=== PATIENT | male | born 2000 | race Caucasian/White ===

== ENCOUNTER 2020-08-06 13:46 | Emergency (ER) | payer OTHER ==
--- NOTE | 2020-08-06 14:17 | XRAY Report ---
PROCEDURE: Wrist 3 View LT INDICATIONS: injury TECHNIQUE: 3 views of the wrist were acquired. COMPARISON: None. FINDINGS: Bones: No displaced fractures or dislocations. No suspicious bony lesions. Soft tissues: No suspicious soft tissue calcifications. IMPRESSION: 1. No displaced fracture or dislocation. If clinical concern persists, a repeat study may be performed in 7-10 days for further evaluation. Reviewed by: Kevin Will MD on 08/06/2020 2:16 PM PDT Approved by: Kevin Will MD on 08/06/2020 2:16 PM PDT Station ID: [id number]
--- NOTE | 2020-08-06 15:29 | ED Physician Documentation ---
PD HPI UPPER EXT INJURY - Stated complaint Stated Complaint: L ARM PX - Chief complaint Chief Complaint: Trauma Ext - History obtained from History obtained from: Patient - Additonal information Additional information: Patient comes emergency department complaining of left wrist pain after falling while skateboarding 4 days ago and injuring his wrist somehow. 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 He states he tried to work yesterday but could not use his wrist at all. He has been wearing a Velcro brace. No prior history of injury to this wrist. Patient states he was not injured in any other way, other than abrasions. Review of Systems Ten Systems: 10 systems reviewed and negative Constitutional: reports: Reviewed and negative Eyes: reports: Reviewed and negative Ears: reports: Reviewed and negative Nose: reports: Reviewed and negative Throat: reports: Reviewed and negative Cardiac: reports: Reviewed and negative Respiratory: reports: Reviewed and negative GI: reports: Reviewed and negative : reports: Reviewed and negative Skin: reports: Reviewed and negative Musculoskeletal: reports: Joint pain Neurologic: reports: Reviewed and negative Psychiatric: reports: Reviewed and negative Endocrine: reports: Reviewed and negative Immunocompromised: reports: Reviewed and negative PD PAST MEDICAL HISTORY - Past Medical History Past Medical History: No - Past Surgical History Past Surgical History: No - Present Medications Home Medications: Ambulatory Orders Medication Instructions Recorded Confirmed HYDROcod/ACETAM 5/325 [[place] 5/325] 1 ea PO Q6H PRN #5 tablet 08/06/20 - Allergies Allergies/Adverse Reactions: Allergies Allergy/AdvReac Type Severity Reaction Status Date / Time No Known Drug Allergies Allergy Verified 08/06/20 13:50 - Social History Does the pt smoke?: No Smoking Status: Never smoker Does the pt drink ETOH?: No Does the pt have substance abuse?: No - Immunizations Immunizations are current?: Yes PD ED PE NORMAL - Vitals Vital signs reviewed: Yes - General General: Alert and oriented X 3, No acute distress - HEENT HEENT: Atraumatic, PERRL, EOMI, Moist mucous membranes - Neck Neck: Supple, no meningeal sign - Cardiac Cardiac: Strong equal pulses - Respiratory Respiratory: No respiratory distress - Abdomen Abdomen: Normal bowel sounds, Soft, Non tender, Non distended - Derm Derm: Warm and dry - Extremities Extremities: No deformity, Other (minimal edema L wrist. Minimally limited ROM, secondary to pain, though ROM is slow. Tenderness over bilateral lateral aspect of wrist.) - Neuro Neuro: Alert and oriented X 3, No motor deficit, No sensory deficit - Psych Psych: Normal mood, Normal affect Results - Vitals Vitals: Vital Signs - 24 hr 08/06/20 08/06/20 13:50 15:55 Temperature 36.9 C 36.9 C Heart Rate 84 85 Respiratory 16 16 Rate Blood Pressure 162/101 H 132/68 H O2 Saturation 100 100 Oxygen O2 Source Room air - Rads (name of study) L wrist XR Radiology: Final report received, EMP read indepedently, See rad report (neg) PD MEDICAL DECISION MAKING - ED course Complexity details: reviewed old records, reviewed results, re-evaluated patient, considered differential, d/w patient ED course: D/w pt that XR is negative. PT has a velcro splint, which he can wear. We have discussed home management of the sx, as well as the usual indications for return. Departure - Departure Disposition: 01 Home, Self Care Clinical Impression: Contusion of wrist, left Qualifiers: Encounter type: initial encounter Qualified Code(s): S60.212A - Contusion of left wrist, initial encounter Left wrist sprain Qualifiers: Encounter type: initial encounter Qualified Code(s): S63.502A - Unspecified sprain of left wrist, initial encounter Condition: Stable Instructions: ED Sprain Wrist Prescriptions: HYDROcod/ACETAM 5/325 [[place] 5/325] 1 ea PO Q6H PRN #5 tablet PRN Reason: Pain Forms: Activity restrictions Discharge Date/Time: 08/06/20 15:56
[2020-08-06 15:56] VITALS: BP 132/68
== END 2020-08-06 15:56 | disposition home or self-care (01) ==
LOC: ED 13:46
DX: S63.502A Unspecified sprain of left wrist, initial encounter (principal); S60.212A Contusion of left wrist, initial encounter; W19.XXXA Unspecified fall, initial encounter; Y93.51 Activity, roller skating (inline) and skateboarding
CPT/HCPCS: 99283; 99284

== ENCOUNTER 2024-07-12 08:00 | Outpatient (CLI) | payer OTHER ==
[2024-07-12 18:03] LABS: BASOPHILS # (AUTO) 0.1 10^3/uL (0.0-0.1); BASOPHILS % (AUTO) 0.9 %; EOSINOPHILS # (AUTO) 0.5 10^3/uL (0.0-0.7); EOSINOPHILS % (AUTO) 4.5 %; HCT - HEMATOCRIT 41.1 % (42.0-52.0); HGB - HEMOGLOBIN 14.8 g/dL (14.0-18.0); LYMPHOCYTES # (AUTO) 0.9 10^3/uL (1.5-3.5); LYMPHOCYTES % (AUTO) 9.1 %; MEAN CORPUSCULAR HEMOGLOBIN 32.3 pg (27.0-31.0); MEAN CORPUSCULAR VOLUME 89.7 fL (80.0-94.0); MEAN PLATELET VOLUME 9.5 fL (7.4-11.4); MONOCYTES # (AUTO) 0.9 10^3/uL (0.0-1.0); MONOCYTES % (AUTO) 8.9 %; NEUTROPHILS # (AUTO) 7.6 10^3/uL (1.5-6.6); NEUTROPHILS % (AUTO) 75.9 %; PLT - PLATELET COUNT 345 10^3/uL (130-450); RED BLOOD COUNT 4.58 10^6/uL (4.70-6.10)
[2024-07-12 18:21] LABS: ALBUMIN 4.2 g/dL (3.2-5.5); ALBUMIN/GLOBULIN RATIO 1.6 (1.0-2.2); BILIRUBIN,TOTAL 0.5 mg/dL (0.2-1.0); CALCIUM 9.3 mg/dL (8.5-10.3); CREATININE 0.9 mg/dL (0.6-1.3); POTASSIUM 4.1 mmol/L (3.5-4.5); TOTAL PROTEIN 6.9 g/dL (6.4-8.9)
[2024-07-14 01:08] LABS: HBsAG SCREEN Negative (Negative); HCV AB Non Reactive (Non Reactive); HEPATITIS B CORE IGM AB Negative (Negative); HIV SCREEN 4TH GENERATION Non Reactive (Non Reactive)
== END 2024-07-12 23:59 | disposition home or self-care (01) ==
LOC: LAB.N 08:00
PROVIDERS: ATTEND Nurse Practitioner
DX: S61.231A Puncture wound without foreign body of left index finger without damage to nail, initial encounter (principal)
CPT/HCPCS: 36415; 80053; 80074; 85025; 87389